=== PATIENT | male | born 1970 | race Caucasian/White ===

== ENCOUNTER 2016-10-04 21:59 | Emergency (ER) | payer MEDICARE, OTHER ==
[~2016-10-04 21:59] MED LIST: "DEPAKOTE \\\"ER\\\"500 MG" PO; ASPIR 8181 MG PO; COLACE 100MG C100 MG PO; DOXEPIN HCL50 MG PO; ELIQUIS5 MG PO; IBUPROFEN800 MG PO; LAMICTAL200 MG PO; LAMICTAL25 MG PO; MAG-TAB SR84 MG PO; MIRALAX17 GM PO; OMNICEF 300 MG300 MG PO; PERCOCET 5-3251 EACH PO; PERPHENAZINE4 MG PO; PHENOBARBITAL97.2 MG PO; REMERON30 MG PO; SYNTHROID100 MCG PO; TRAZODONE HCL150 MG PO; TRILAFON PO; TYLENOL 325MG325 MG PO; VIMPAT10 MG/1 ML PO; VIMPAT100 MG PO; [UNRECOGNIZED DRUG - OTHER] PO
[2016-10-04 22:51] LABS: HEMOGLOBIN 11.3 gm/dl (14.0-17.5); RED BLOOD COUNT 3.94 M/UL (4.20-5.50); WHITE BLOOD COUNT 9.1 K/UL (4.5-11.0)
[2016-10-04 23:17] LABS: BUN/CREATININE RATIO 20 (0-10)
[2017-03-22] MEDS ORDERED: TYLENOL 325MG325 MG PO (15:04)
[2017-03-22] MEDS ORDERED: VIMPAT100 MG PO (15:04)
[2017-03-23] MEDS ORDERED: SEROQUEL XR400 MG PO (09:17)
[2017-03-23] MEDS ORDERED: VALPROIC ACID250 MG PO (12:40)
== END 2016-10-05 03:40 | disposition home or self-care (01) ==
LOC: ER1 21:59
PROVIDERS: Emergency Medicine
DX: R07.9 Chest pain, unspecified (principal); E03.9 Hypothyroidism, unspecified; Z88.0 Allergy status to penicillin; Z88.8 Allergy status to other drugs, medicaments and biological substances
CPT/HCPCS: 36415; 71010; 80053; 82550; 82553; 83874; 84484; 85025; 85379; 85610; 85730; 93005; 96360; 99285; J7030; J7050; Q9963

== ENCOUNTER 2016-11-30 02:38 | Emergency (ER) | payer MEDICARE, OTHER ==
[2016-11-30 04:22] LABS: HEMOGLOBIN 13.8 gm/dl (14.0-17.5); RED BLOOD COUNT 4.79 M/UL (4.20-5.50); WHITE BLOOD COUNT 8.8 K/UL (4.5-11.0)
[2016-11-30 05:02] LABS: BUN/CREATININE RATIO 23 (0-10)
[2017-03-22] MEDS ORDERED: TYLENOL 325MG325 MG PO (15:04)
[2017-03-22] MEDS ORDERED: VIMPAT100 MG PO (15:04)
[2017-03-23] MEDS ORDERED: SEROQUEL XR400 MG PO (09:17)
[2017-03-23] MEDS ORDERED: VALPROIC ACID250 MG PO (12:40)
== END 2016-11-30 07:50 | disposition home or self-care (01) ==
LOC: ER1 02:38
PROVIDERS: Family Medicine
DX: G40.909 Epilepsy, unspecified, not intractable, without status epilepticus (principal); Z88.0 Allergy status to penicillin; Z88.5 Allergy status to narcotic agent
CPT/HCPCS: 36415; 80053; 80175; 80184; 80299; 84443; 85025; 99285

== ENCOUNTER 2016-12-22 08:38 | Emergency (ER) | payer MEDICARE, OTHER ==
[2016-12-22 10:03] LABS: HEMOGLOBIN 14.4 gm/dl (14.0-17.5); RED BLOOD COUNT 4.97 M/UL (4.20-5.50); WHITE BLOOD COUNT 7.5 K/UL (4.5-11.0)
[2016-12-22 10:23] LABS: BUN/CREATININE RATIO 21 (0-10)
[2017-03-22] MEDS ORDERED: VIMPAT100 MG PO (15:04)
[2017-03-22] MEDS ORDERED: TYLENOL 325MG325 MG PO (15:04)
[2017-03-23] MEDS ORDERED: SEROQUEL XR400 MG PO (09:17)
[2017-03-23] MEDS ORDERED: VALPROIC ACID250 MG PO (12:40)
== END 2016-12-22 14:58 | disposition home or self-care (01) ==
LOC: ER1 08:38
PROVIDERS: Family Medicine
DX: G40.909 Epilepsy, unspecified, not intractable, without status epilepticus (principal); F09 Unspecified mental disorder due to known physiological condition; F31.9 Bipolar disorder, unspecified; F17.290 Nicotine dependence, other tobacco product, uncomplicated; Z88.0 Allergy status to penicillin; Z88.8 Allergy status to other drugs, medicaments and biological substances
CPT/HCPCS: 36415; 70450; 71010; 80053; 80184; 80299; 81001; 83735; 85025; 87040; 87086; 96360; 96361; 99285

== ENCOUNTER → 2017-01-11 | Outpatient (CLI) | payer MEDICARE, OTHER ==
[~2017-01-11] MED LIST changes: +SEROQUEL XR400 MG PO; +VALPROIC ACID250 MG PO
[2017-01-11 13:12] LABS: HEMOGLOBIN 15.5 gm/dl (14.0-17.5); RED BLOOD COUNT 5.28 M/UL (4.20-5.50); WHITE BLOOD COUNT 7.1 K/UL (4.5-11.0)
[2017-01-11 13:33] LABS: BUN/CREATININE RATIO 26 (0-10)
== END ==
LOC: LAB 10:59
PROVIDERS: Nurse Practitioner Primary Care
DX: D64.9 Anemia, unspecified (principal); G40.909 Epilepsy, unspecified, not intractable, without status epilepticus; Z79.899 Other long term (current) drug therapy
CPT/HCPCS: 36415; 80053; 80061; 80175; 80184; 80299; 82607; 82728; 82746; 83540; 83550; 83735; 84443; 85025

== ENCOUNTER 2017-04-22 22:01 | Emergency (ER) | payer MEDICARE, OTHER ==
[2017-04-22 23:16] LABS: HEMOGLOBIN 15.4 gm/dl (14.0-17.5); RED BLOOD COUNT 5.03 M/UL (4.20-5.50); WHITE BLOOD COUNT 9.9 K/UL (4.5-11.0)
[2017-04-22 23:56] LABS: BUN/CREATININE RATIO 18 (0-10)
== END 2017-04-23 00:58 | disposition home or self-care (01) ==
LOC: ER1 22:01
PROVIDERS: Family Medicine
DX: R07.89 Other chest pain (principal); F41.9 Anxiety disorder, unspecified; G40.909 Epilepsy, unspecified, not intractable, without status epilepticus; Z86.711 Personal history of pulmonary embolism; Z79.899 Other long term (current) drug therapy; Z88.0 Allergy status to penicillin; Z88.1 Allergy status to other antibiotic agents; Z88.8 Allergy status to other drugs, medicaments and biological substances; Z98.890 Other specified postprocedural states
CPT/HCPCS: 36415; 71010; 80053; 82550; 82553; 83874; 84484; 85025; 93005; 99285

== ENCOUNTER 2020-08-23 21:25 | Inpatient (IN) | payer MEDICARE, OTHER ==
[~2020-08-23] VITALS: Ht 170.2 cm; Wt 89.8 kg
[~2020-08-23 21:25] MED LIST changes: +ASPIRIN CHEWABL81 MG PO; +BACTROBAN CREAM15 GM TOP; +BANZEL400 MG PO; +BENZTROPINE MESY1 MG PO; +DEPAKOTE 250 M250 MG PO; +DEPAKOTE500 MG PO; +FLOMAX0.4 MG PO; +HALDOL 5 MG TAB5 MG PO; +KEFLEX500 MG PO; -LAMICTAL200 MG PO; +LATUDA80 MG PO; +MACROBID 100 M100 MG PO; +MELATONIN3 MG PO; +NICOTINE PATCH1 EAC5 TD; +ONFI20 MG PO; +PHENERGAN 25 MG25 M1 PO; +PHENOBARBITAL30 MG PO; +PHENOBARBITAL32.4 MG PO; -PHENOBARBITAL97.2 MG PO; +PROSCAR5 MG PO; +RESTORIL 15 MG15 MG PO; +THICK-IT PO; +VALIUM 5 MG TAB5 MG PO; +VIMPAT200 MG PO; +[UNRECOGNIZED DRUG - SUPPLY]
[2020-08-23 23:36] LABS: HEMOGLOBIN 14.6 gm/dl (14.0-17.5); RED BLOOD COUNT 4.64 M/UL (4.20-5.50)
[2020-08-24 00:08] LABS: BUN/CREATININE RATIO 19 (0-10)
[2020-08-24] MEDS ORDERED: LAMICTAL150 MG PO (12:12)
[2020-08-24] MEDS ORDERED: AMITIZA24 MCG PO (18:16)
[2020-08-24] MEDS ORDERED: ZOLOFT100 MG PO (18:17)
[2020-08-24] MEDS ORDERED: TRAZODONE HCL100 MG PO (18:17)
[2020-08-24] MEDS ORDERED: DYMISTA NASAL S23 GM (18:18)
[2020-08-24] MEDS ORDERED: FLONASE 0.05% N16 GM (18:18)
[2020-08-24] MEDS ORDERED: VALIUM 5 MG TAB5 MG PO (18:19)
[2020-08-24] MEDS ORDERED: VITAMIN D325 MCG PO (18:20)
[2020-08-25 07:18] LABS: HEMOGLOBIN 13.8 gm/dl (14.0-17.5); RED BLOOD COUNT 4.48 M/UL (4.20-5.50)
[2020-08-25 07:54] LABS: BUN/CREATININE RATIO 18 (0-10)
--- NOTE | 2020-08-25 15:17 | NUR ---
SPOKE WITH MALE FROM [facility] HE WILL CALL SOMEONE TO COME GUITAR MAKER THE PATIENT
[2021-02-06] MEDS ORDERED: PHENOBARBITAL32.4 MG PO ×2 (12:33→12:40)
[2021-02-06] MEDS ORDERED: NAYZILAM5 MG/0.1 M ×2 (12:33→12:40)
[2021-02-06] MEDS ORDERED: ONFI20 MG PO ×2 (12:33→12:40)
[2021-02-06] MEDS ORDERED: VALIUM 5 MG TAB5 MG PO ×2 (12:33→12:40)
== END 2020-08-25 15:53 | disposition home or self-care (01) | DRG 93 ==
LOC: ER1 21:25 → CDU 08-24 01:33 → MED SURG 4 08-24 20:08
PROVIDERS: Family Medicine; Physician Assistant; ADMIT Internal Medicine
DX: G92 Toxic encephalopathy (principal); T42.3X5A Adverse effect of barbiturates, initial encounter; G40.909 Epilepsy, unspecified, not intractable, without status epilepticus; F79 Unspecified intellectual disabilities; Z20.822 Contact with and (suspected) exposure to COVID-19; E03.9 Hypothyroidism, unspecified; I10 Essential (primary) hypertension; Z79.899 Other long term (current) drug therapy; Z88.8 Allergy status to other drugs, medicaments and biological substances
CPT/HCPCS: 36415; 36600; 70450; 71045; 72125; 80053; 80184; 81001; 82140; 82803; 83605; 84439; 84443; 85025; 87040; 93005; 96374; 99285; G0480; J3480; U0002

== ENCOUNTER 2020-09-04 11:01 | Inpatient (IN) | payer MEDICARE, OTHER ==
[~2020-09-04] VITALS: Ht 185.4 cm; Wt 90.7 kg
[~2020-09-04 11:01] MED LIST changes: +AMITIZA24 MCG PO; +DYMISTA NASAL S23 GM; +FLONASE 0.05% N16 GM; +LAMICTAL150 MG PO; +TRAZODONE HCL100 MG PO; +VITAMIN D325 MCG PO; +ZOLOFT100 MG PO
[2020-09-04 12:50] LABS: HEMOGLOBIN 13.2 gm/dl (14.0-17.5); RED BLOOD COUNT 4.12 M/UL (4.20-5.50); WHITE BLOOD COUNT 8.6 K/UL (4.5-11.0)
[2020-09-04 13:29] LABS: BUN/CREATININE RATIO 17 (0-10)
[2020-09-04] MEDS ORDERED: PHENOBARBITAL32.4 MG PO (18:39)
[2020-09-04] MEDS ORDERED: VALIUM10 MG PO (18:42)
[2020-09-04] MEDS ORDERED: DEPAKENE S250 MG/5 M PO (18:49)
[2020-09-04] MEDS ORDERED: NAYZILAM5 MG/0.1 M (19:08)
[2020-09-05 06:53] LABS: HEMOGLOBIN 13.4 gm/dl (14.0-17.5); RED BLOOD COUNT 4.21 M/UL (4.20-5.50); WHITE BLOOD COUNT 6.6 K/UL (4.5-11.0)
[2020-09-05 09:15] LABS: BUN/CREATININE RATIO 16 (0-10)
[2020-09-06 07:11] LABS: HEMOGLOBIN 11.6 gm/dl (14.0-17.5); RED BLOOD COUNT 3.79 M/UL (4.20-5.50); WHITE BLOOD COUNT 5.2 K/UL (4.5-11.0)
[2020-09-06 07:30] LABS: BUN/CREATININE RATIO 15 (0-10)
[2020-09-07 03:38] LABS: RED BLOOD COUNT 3.76 M/UL (4.20-5.50); WHITE BLOOD COUNT 4.4 K/UL (4.5-11.0)
[2020-09-07 03:57] LABS: BUN/CREATININE RATIO 6 (0-10)
--- NOTE | 2020-09-07 18:08 | NUR ---
1725: NURSE CALLED TO PATIENT'S ROOM FROM [facility]. PATIENT APPEARS TO BE HAVING SEIZURE. PATIENT'S ARMS AND LEGS ARE RIGID AND TREMBLING. PATIENT'S EYES ARE FIXED IN AN UPWARD POSITION. NO VERBAL RESPONSE TO TACTILE OR VERBAL STIMULI. CONTACTED MD. NEW ORDER FOR ATIVAN 2 MG IVP NOTED. 1727: IV ATIVAN ADMINISTERED. MD AWARE OF ALLERGY LISTED. 1732: CONTACTED MD AGAIN REGARDING PATIENT'S SEIZURE IS PROLONGED. HE STATES HE IS RESPONDING TO THE FLOOR. 1740: RESOURCE NURSE, PRIMARY NURSE, TWO PCT, AND TWO OTHER FLOOR NURSES IN ROOM. MD ARRIVES. INSTRUCTED TO GIVE VALIUM 10 MG IVP. 1745: SEIZURE IS STILL PROLONGED WITH NO IMPROVEMENT. AIRWAY IS MAINTAINED DISPLAYED BY O2 SAT BETWEEN 92-95% ON 2 SOFTWARE VALIDATION TECHNICIAN O2. PATIENT IS ON DEFIB PADS FOR PRECAUTINONARY MEASURES. 10 MG VALIUM IVP GIVEN. 1748: KEPPRA 500 MG IV STARTED. 1750: 10 MG VALIUM IVP GIVEN. 1800: PATIENT IS AROUSABLE TO VERBAL STIMULI, BUT VERY LETHARGIC DUE TO MEDICATIONS. 1810: KEPPRA 500 MG SECOND DOSE GIVEN. 1815: PATIENT REMAINS LETHARGIC, NO SEIZURE ACTIVITY NOTED.
--- NOTE | 2020-09-07 19:57 | NUR ---
PATIENT RESTING IN BED WITH EYES CLOSED AT PRESENT. BED SIDE RAILS PADDED AND SUCTION AT BEDSIDE. PATIENT HAS SITTER AND IS ON VITAL MACHINE PULSE OX AT BEDSIDE. NO S/SX OF DISTRESS NOTED. PENDING TRANSFER TO HIGHER CARE UNIT. NC IN PLACE WITH 02 INFUSING AT 2 L/MIN. BED IN LOW FRIED'S POSITION.----YESI BALL.
[2020-09-08 05:10] LABS: HEMOGLOBIN 11.2 gm/dl (14.0-17.5); RED BLOOD COUNT 3.56 M/UL (4.20-5.50); WHITE BLOOD COUNT 4.1 K/UL (4.5-11.0)
[2020-09-08 05:45] LABS: BUN/CREATININE RATIO 5 (0-10)
[2020-09-09 04:57] LABS: HEMOGLOBIN 10.8 gm/dl (14.0-17.5); RED BLOOD COUNT 3.45 M/UL (4.20-5.50)
[2020-09-09 05:01] LABS: WHITE BLOOD COUNT 2.7 K/UL (4.5-11.0)
[2020-09-09 05:24] LABS: BUN/CREATININE RATIO 13 (0-10)
[2020-09-10 05:26] LABS: HEMOGLOBIN 11.7 gm/dl (14.0-17.5); RED BLOOD COUNT 3.65 M/UL (4.20-5.50)
[2020-09-10 05:27] LABS: WHITE BLOOD COUNT 5.3 K/UL (4.5-11.0)
[2020-09-10 05:44] LABS: BUN/CREATININE RATIO 12 (0-10)
[2020-09-11 04:28] LABS: HEMOGLOBIN 11.5 gm/dl (14.0-17.5); RED BLOOD COUNT 3.63 M/UL (4.20-5.50); WHITE BLOOD COUNT 5.5 K/UL (4.5-11.0)
[2020-09-11 04:42] LABS: BUN/CREATININE RATIO 4 (0-10)
--- NOTE | 2020-09-11 06:19 | NUR ---
Patient experiencing difficulty breathing. Respiratory notified. Patient placed on bipap at this time. Will continue to monitor
[2020-09-13 04:38] LABS: HEMOGLOBIN 11.5 gm/dl (14.0-17.5); RED BLOOD COUNT 3.61 M/UL (4.20-5.50)
[2020-09-13 04:39] LABS: WHITE BLOOD COUNT 9.2 K/UL (4.5-11.0)
[2020-09-13 05:04] LABS: BUN/CREATININE RATIO 9 (0-10)
[2020-09-14 03:09] LABS: HEMOGLOBIN 11.8 gm/dl (14.0-17.5); RED BLOOD COUNT 3.71 M/UL (4.20-5.50); WHITE BLOOD COUNT 9.9 K/UL (4.5-11.0)
--- NOTE | 2020-09-14 05:01 | NUR ---
AT 0242, MD ALERTED TO SEEMING PT STATUS CHANGE. ORDERS LISTED IN PROVIDER NOTE. WHEN CHEST X-RAY CAME BACK CRITICAL MD WAS ALERTED IMMEDIATELY. SEE PROVIDER NOTE FOR MORE INFO AT TIME STAMP 0415. ICU TX ORDERS VERBALLY GIVEN. BED OBTAINED. PT WAS PLACED ON 100% BIPAP AT 0422. IV LASIX AND PO POTASSIUM GIVEN ORDERED. PT IS STABLE ON BIPAP AT THIS TIME WHILE PREPARING TO MOVE TO ICU. RESOURCE NURSE ON HAND WHO IS TAKING PT IN ICU.
[2020-09-14 07:17] LABS: BUN/CREATININE RATIO 16 (0-10)
[2020-09-15 06:08] LABS: HEMOGLOBIN 11.8 gm/dl (14.0-17.5); RED BLOOD COUNT 3.71 M/UL (4.20-5.50)
[2020-09-15 06:37] LABS: BUN/CREATININE RATIO 23 (0-10)
[2020-09-16 05:09] LABS: HEMOGLOBIN 11.5 gm/dl (14.0-17.5); RED BLOOD COUNT 3.64 M/UL (4.20-5.50)
[2020-09-16 05:15] LABS: WHITE BLOOD COUNT 9.7 K/UL (4.5-11.0)
[2020-09-16 05:31] LABS: BUN/CREATININE RATIO 21 (0-10)
[2020-09-17 02:39] LABS: HEMOGLOBIN 11.2 gm/dl (14.0-17.5); RED BLOOD COUNT 3.68 M/UL (4.20-5.50); WHITE BLOOD COUNT 9.7 K/UL (4.5-11.0)
[2020-09-17 03:47] LABS: BUN/CREATININE RATIO 22 (0-10)
[2020-09-18 10:52] LABS: HEMOGLOBIN 12.4 gm/dl (14.0-17.5); RED BLOOD COUNT 3.9 M/UL (4.20-5.50); WHITE BLOOD COUNT 12.1 K/UL (4.5-11.0)
[2020-09-18 11:25] LABS: BUN/CREATININE RATIO 21 (0-10)
[2020-09-19 03:03] LABS: HEMOGLOBIN 12.1 gm/dl (14.0-17.5); RED BLOOD COUNT 3.82 M/UL (4.20-5.50); WHITE BLOOD COUNT 11.2 K/UL (4.5-11.0)
[2020-09-19 03:28] LABS: BUN/CREATININE RATIO 33 (0-10)
[2020-09-20 03:18] LABS: HEMOGLOBIN 11.3 gm/dl (14.0-17.5); RED BLOOD COUNT 3.61 M/UL (4.20-5.50); WHITE BLOOD COUNT 8.6 K/UL (4.5-11.0)
[2020-09-20 03:39] LABS: BUN/CREATININE RATIO 22 (0-10)
[2020-09-21 02:20] LABS: HEMOGLOBIN 11.5 gm/dl (14.0-17.5); RED BLOOD COUNT 3.74 M/UL (4.20-5.50); WHITE BLOOD COUNT 6.9 K/UL (4.5-11.0)
[2020-09-21 02:42] LABS: BUN/CREATININE RATIO 22 (0-10)
[2020-09-22] MEDS ORDERED: IPRAT-ALBUT 0.5-3 ML NEB (09:59)
[2020-09-24 03:46] LABS: HEMOGLOBIN 11.8 gm/dl (14.0-17.5); RED BLOOD COUNT 3.72 M/UL (4.20-5.50); WHITE BLOOD COUNT 7.9 K/UL (4.5-11.0)
[2020-09-24 04:10] LABS: BUN/CREATININE RATIO 27 (0-10)
[2020-09-25 03:20] LABS: BUN/CREATININE RATIO 28 (0-10)
[2020-10-03 08:19] LABS: BUN/CREATININE RATIO 13 (0-10)
[2020-10-03] MEDS ORDERED: PROAIR HFA8.5 GM INH (11:55)
[2021-02-06] MEDS ORDERED: ONFI20 MG PO ×2 (12:33→12:40)
[2021-02-06] MEDS ORDERED: VALIUM 5 MG TAB5 MG PO ×2 (12:33→12:40)
[2021-02-06] MEDS ORDERED: PHENOBARBITAL32.4 MG PO ×2 (12:33→12:40)
[2021-02-06] MEDS ORDERED: NAYZILAM5 MG/0.1 M ×2 (12:33→12:40)
== END 2020-10-03 15:11 | disposition home or self-care (01) | DRG 177 ==
LOC: ER1 11:01 → PROG CARE 16:54 → MED SURG 4 16:54 → CCU 16:54 → ZEROF 16:54 → MED SURG 4 23:05 → CCU 09-07 20:56 → M/S 09-10 15:08 → CCU 09-14 05:16 → PROG CARE 09-16 18:13 → MED SURG 4 09-25 20:37
PROVIDERS: Family Medicine; Internal Medicine; Internal Medicine Infectious Disease; Internal Medicine Pulmonary Disease; Physician Assistant; ADMIT Internal Medicine
PROC: 8E0ZXY6 Isolation (ICD-10-PCS; 2020-09-04)
PROC: XW033E5 Introduction of Remdesivir Anti-infective into Peripheral Vein, Percutaneous Approach, New Technology Group 5 (ICD-10-PCS; 2020-09-07)
PROC: 02H633Z Insertion of Infusion Device into Right Atrium, Percutaneous Approach (ICD-10-PCS; principal; 2020-09-08)
PROC: B548ZZA Ultrasonography of Superior Vena Cava, Guidance (ICD-10-PCS; 2020-09-08)
PROC: 0DH67UZ Insertion of Feeding Device into Stomach, Via Natural or Artificial Opening (ICD-10-PCS; 2020-09-08)
PROC: 3E0G76Z Introduction of Nutritional Substance into Upper GI, Via Natural or Artificial Opening (ICD-10-PCS; 2020-09-08)
PROC: 5A09457 Assistance with Respiratory Ventilation, 24-96 Consecutive Hours, Continuous Positive Airway Pressure (ICD-10-PCS; 2020-09-14)
DX: U07.1 COVID-19 (principal); J12.82 Pneumonia due to coronavirus disease 2019; J80 Acute respiratory distress syndrome; G93.41 Metabolic encephalopathy; A41.9 Sepsis, unspecified organism; R19.7 Diarrhea, unspecified; R00.1 Bradycardia, unspecified; Z88.1 Allergy status to other antibiotic agents; Z88.0 Allergy status to penicillin; Z88.8 Allergy status to other drugs, medicaments and biological substances; T42.3X1A Poisoning by barbiturates, accidental (unintentional), initial encounter; E03.9 Hypothyroidism, unspecified; F79 Unspecified intellectual disabilities; G40.909 Epilepsy, unspecified, not intractable, without status epilepticus; Z79.899 Other long term (current) drug therapy; F17.210 Nicotine dependence, cigarettes, uncomplicated
CPT/HCPCS: 36415; 36600; 70450; 71045; 74018; 80048; 80053; 80184; 80202; 82140; 82550; 82553; 82728; 82803; 82962; 83605; 83615; 83735; 83874; 83880; 84100; 84484; 85025; 85027; 85379; 85610; 86140; 87040; 87081; 87635; 92526; 92610; 93005; 94640; 94660; 94760; 96365; 96366; 96372; 97110-GP-CQ; 97116; 97116-GP-CQ; 97162; 97530; 97530-GP-CQ; 99285; C1751; G0480; J0456; J1100; J1630; J1650; J1940; J1953; J2060; J2250; J2543; J3360; J3370; J3480; J3486; J7030; J7070; U0002

== ENCOUNTER 2020-10-16 09:51 | Emergency (ER) | payer MEDICARE, OTHER ==
[~2020-10-16 09:51] MED LIST changes: +DEPAKENE S250 MG/5 M PO; +IPRAT-ALBUT 0.5-3 ML NEB; +NAYZILAM5 MG/0.1 M; +PROAIR HFA8.5 GM INH; +VALIUM10 MG PO
[2021-02-06] MEDS ORDERED: PHENOBARBITAL32.4 MG PO ×2 (12:33→12:40)
[2021-02-06] MEDS ORDERED: ONFI20 MG PO ×2 (12:33→12:40)
[2021-02-06] MEDS ORDERED: NAYZILAM5 MG/0.1 M ×2 (12:33→12:40)
[2021-02-06] MEDS ORDERED: VALIUM 5 MG TAB5 MG PO ×2 (12:33→12:40)
== END 2020-10-16 10:52 | disposition home or self-care (01) ==
LOC: ER1 09:51
DX: S01.81XA Laceration without foreign body of other part of head, initial encounter (principal); S01.01XA Laceration without foreign body of scalp, initial encounter; Z88.0 Allergy status to penicillin; Y92.69 Other specified industrial and construction area as the place of occurrence of the external cause; W19.XXXA Unspecified fall, initial encounter
CPT/HCPCS: 12011; 99283

== ENCOUNTER 2020-10-24 10:50 | Emergency (ER) | payer MEDICARE, OTHER ==
[2020-10-24 11:23] LABS: HEMOGLOBIN 12.5 gm/dl (14.0-17.5); RED BLOOD COUNT 3.91 M/UL (4.20-5.50); WHITE BLOOD COUNT 5.2 K/UL (4.5-11.0)
[2020-10-24 11:45] LABS: BUN/CREATININE RATIO 19 (0-10)
[2021-02-06] MEDS ORDERED: ONFI20 MG PO ×2 (12:33→12:40)
[2021-02-06] MEDS ORDERED: PHENOBARBITAL32.4 MG PO ×2 (12:33→12:40)
[2021-02-06] MEDS ORDERED: NAYZILAM5 MG/0.1 M ×2 (12:33→12:40)
[2021-02-06] MEDS ORDERED: VALIUM 5 MG TAB5 MG PO ×2 (12:33→12:40)
== END 2020-10-24 13:37 | disposition home or self-care (01) ==
LOC: ER1 10:50
PROVIDERS: Physician Assistant Medical
DX: R41.82 Altered mental status, unspecified (principal); R11.0 Nausea; G40.909 Epilepsy, unspecified, not intractable, without status epilepticus; Z88.0 Allergy status to penicillin; Z88.8 Allergy status to other drugs, medicaments and biological substances
CPT/HCPCS: 70450; 71045; 80053; 80307; 81001; 83605; 84439; 84443; 84484; 85025; 99285

== ENCOUNTER 2021-01-29 14:01 | Observation (INO) | payer MEDICARE, OTHER ==
[~2021-01-29] VITALS: Ht 170.2 cm; Wt 77.1 kg
[2021-01-29 14:51] LABS: HEMOGLOBIN 14.6 gm/dl (14.0-17.5); RED BLOOD COUNT 4.52 M/UL (4.20-5.50); WHITE BLOOD COUNT 9.7 K/UL (4.5-11.0)
[2021-01-29 15:22] LABS: BUN/CREATININE RATIO 18 (0-10)
[2021-01-29] MEDS ORDERED: HALDOL 5 MG TAB5 MG PO (22:46)
[2021-01-29] MEDS ORDERED: MELATONIN3 MG PO (22:46)
[2021-01-29] MEDS ORDERED: ZOLOFT100 MG PO (22:47)
[2021-01-29] MEDS ORDERED: MIRALAX17 GM PO (22:47)
[2021-01-29] MEDS ORDERED: NAYZILAM5 MG/0.1 M (22:49)
[2021-01-30 05:17] LABS: HEMOGLOBIN 14.4 gm/dl (14.0-17.5); RED BLOOD COUNT 4.44 M/UL (4.20-5.50); WHITE BLOOD COUNT 8.1 K/UL (4.5-11.0)
[2021-01-30 05:44] LABS: BUN/CREATININE RATIO 13 (0-10)
[2021-01-31 04:17] LABS: HEMOGLOBIN 13.6 gm/dl (14.0-17.5); RED BLOOD COUNT 4.26 M/UL (4.20-5.50)
[2021-01-31 04:19] LABS: WHITE BLOOD COUNT 18.3 K/UL (4.5-11.0)
[2021-01-31 04:27] LABS: BUN/CREATININE RATIO 17 (0-10)
[2021-02-01 05:20] LABS: HEMOGLOBIN 13.6 gm/dl (14.0-17.5); RED BLOOD COUNT 4.23 M/UL (4.20-5.50)
[2021-02-01 05:21] LABS: WHITE BLOOD COUNT 7.9 K/UL (4.5-11.0)
[2021-02-01 05:43] LABS: BUN/CREATININE RATIO 17 (0-10)
[2021-02-05 04:31] LABS: HEMOGLOBIN 13.1 gm/dl (14.0-17.5); RED BLOOD COUNT 4.07 M/UL (4.20-5.50); WHITE BLOOD COUNT 6.6 K/UL (4.5-11.0)
[2021-02-05 04:48] LABS: BUN/CREATININE RATIO 16 (0-10)
[2021-02-06] MEDS ORDERED: PHENOBARBITAL32.4 MG PO ×2 (12:33→12:40)
[2021-02-06] MEDS ORDERED: ONFI20 MG PO ×2 (12:33→12:40)
[2021-02-06] MEDS ORDERED: VALIUM 5 MG TAB5 MG PO ×2 (12:33→12:40)
[2021-02-06] MEDS ORDERED: NAYZILAM5 MG/0.1 M ×2 (12:33→12:40)
== END 2021-02-06 17:56 ==
LOC: ER1 14:01 → CDU 17:00 → MED SURG 4 17:00
PROVIDERS: Emergency Medicine; ADMIT Internal Medicine
DX: S82.431A Displaced oblique fracture of shaft of right fibula, initial encounter for closed fracture (principal); S82.231A Displaced oblique fracture of shaft of right tibia, initial encounter for closed fracture; S32.039A Unspecified fracture of third lumbar vertebra, initial encounter for closed fracture; S22.048A Other fracture of fourth thoracic vertebra, initial encounter for closed fracture; S22.058A Other fracture of T5-T6 vertebra, initial encounter for closed fracture; S22.32XA Fracture of one rib, left side, initial encounter for closed fracture; W19.XXXA Unspecified fall, initial encounter; G40.909 Epilepsy, unspecified, not intractable, without status epilepticus; R00.1 Bradycardia, unspecified; Z20.822 Contact with and (suspected) exposure to COVID-19; R94.31 Abnormal electrocardiogram [ECG] [EKG]; F20.9 Schizophrenia, unspecified; F17.290 Nicotine dependence, other tobacco product, uncomplicated; E03.9 Hypothyroidism, unspecified; N40.0 Benign prostatic hyperplasia without lower urinary tract symptoms; M47.812 Spondylosis without myelopathy or radiculopathy, cervical region; M47.816 Spondylosis without myelopathy or radiculopathy, lumbar region; Z88.0 Allergy status to penicillin; Z88.8 Allergy status to other drugs, medicaments and biological substances; Z86.16 Personal history of COVID-19; Z87.01 Personal history of pneumonia (recurrent); F79 Unspecified intellectual disabilities; F09 Unspecified mental disorder due to known physiological condition
CPT/HCPCS: 36415; 51701; 70450; 71045; 72125; 72128; 72131; 73590; 80048; 80053; 80184; 80185; 81001; 82550; 82553; 82607; 82746; 83735; 83874; 84100; 84207; 84439; 84443; 84484; 85025; 85610; 85730; 87086; 90471; 90715; 93005; 94664; 94760; 96372; 96374; 96375; 96376; 97110; 97116; 97116-GP-CQ; 97161; 97166; 97530; 97535; 99285; G0378; G0480; J1650; J1953; J3360; U0002